=== PATIENT | male | born 1980 | race Two or more races ===

== ENCOUNTER 2018-02-01 17:44 | Emergency (ER) | payer SELFPAY ==
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
--- NOTE | 2018-02-03 08:45 | US ---
EXAM DATE: 02/01/18 PATIENT'S AGE: 37 Patient: JULIO CÉSAR LONG VESSELL Facility: [facility] . Site : 1980 Study: US-Testicle [id number]/3/2018 7:52:23 PM Ordering Physician: YAKOV Final Report: INDICATION: Right testicular pain. TECHNIQUE: Conventional two-dimensional grayscale ultrasound of the scrotum as well color- flow and pulsed Doppler of the testes. COMPARISON: None. FINDINGS: The right testis is heterogeneous in echogenicity and demonstrates hyperemia on color flow Doppler evaluation. The right epididymis is also enlarged and hyperemic. These findings are consistent with epididymo-orchitis. The right testis measures 5.4 x 2.6 x 2.2 cm and the left 4.8 x 2.6 x 2.5 cm. Color flow Doppler demonstrates normal left testicular and epididymal blood flow. No left epididymal abnormality. No abnormal fluid collection or varicocele is identified. IMPRESSION: Right epididymo-orchitis. Dictated by Rodger Moura MD @ Feb 03 2018 7:08AM Signed by: Rodger Moura MD @02/03/2018 7:12:45 AM (Electronic Signature) Report Signed by Proxy. CLEM
--- NOTE | 2018-02-03 08:46 | US ---
EXAM DATE: 02/01/18 PATIENT'S AGE: 37 Patient: JULIO CÉSAR LONG VESSELL Facility: [facility] Site . Site : 1980 Study: US-Testicle [id number]/3/2018 7:52:23 PM Ordering Physician: YAKOV Final Report: INDICATION: Right testicular pain. TECHNIQUE: Conventional two-dimensional grayscale ultrasound of the scrotum as well color- flow and pulsed Doppler of the testes. COMPARISON: None. FINDINGS: The right testis is heterogeneous in echogenicity and demonstrates hyperemia on color flow Doppler evaluation. The right epididymis is also enlarged and hyperemic. These findings are consistent with epididymo-orchitis. The right testis measures 5.4 x 2.6 x 2.2 cm and the left 4.8 x 2.6 x 2.5 cm. Color flow Doppler demonstrates normal left testicular and epididymal blood flow. No left epididymal abnormality. No abnormal fluid collection or varicocele is identified. IMPRESSION: Right epididymo-orchitis. Dictated by Rodger Moura MD @ Feb 03 2018 7:08AM Signed by: Rodger Moura MD @02/03/2018 7:12:45 AM (Electronic Signature) Report Signed by Proxy. CLEM
== END 2018-02-01 20:30 | disposition home or self-care (01) ==
LOC: MW.ED 17:44
DX: N50.811 Right testicular pain (principal); Z88.0 Allergy status to penicillin
CPT/HCPCS: 76870; 76870-26; 81001; 87086; 87491; 87591; 93976; 93976-26; 99284-25

== ENCOUNTER 2022-01-14 14:03 | Emergency (ER) | payer BC | END 2022-01-14 15:01 | disposition left against medical advice (07) | LOC: MW.ED 14:03 | DX: Z53.21 Procedure and treatment not carried out due to patient leaving prior to being seen by health care provider (principal) ==